=== PATIENT | male | born 2000 | race Caucasian/White ===

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

== ENCOUNTER → 2021-08-27 | Outpatient (CLI) | payer OTHER ==
[~2021-08-27] MED LIST changes: +HYDR1TAB94 PO; +Vibramycin100 MG PO
[2021-08-29 19:08] LABS: CHLAMYDIA TRACHOMATIS, NAA Negative (Negative)
== END | disposition home or self-care (01) ==
LOC: LAB SHORT 19:11
PROVIDERS: Physician Assistant
DX: Z11.59 Encounter for screening for other viral diseases (principal)
CPT/HCPCS: 87491; 87591

== ENCOUNTER 2021-12-30 06:55 | Emergency (ER) | payer OTHER ==
[~2021-12-30] VITALS: Ht 185.4 cm; Wt 99.8 kg
[2021-12-30 07:35] LABS: BASOPHILS ABSOLUTE AUTO 0.05 K/mm3 (0.00-0.23); BASOPHILS PERCENT AUTO 1 % (0-2); EOSINOPHILS PERCENT AUTO 3 % (0-6); Hematocrit 44.1 % (37.0-53.0); Hemoglobin 14.8 g/dL (13.5-17.5); IMMATURE GRAN ABSOLUTE AUTO 0.01 K/mm3 (0.00-0.10); IMMATURE GRAN PERCENT AUTO 0 % (0-1); LYMPHOCYTES PERCENT AUTO 34 % (21-46); MONOCYTES ABSOLUTE AUTO 0.68 K/mm3 (0.16-1.47); MONOCYTES PERCENT AUTO 9 % (4-13); Mean Corpuscular HGB 29.3 pg (26.0-34.0); Mean Corpuscular HGB Conc 33.6 g/dL (31.5-36.5); Mean Corpuscular Volume 87 fL (80-100); Mean Platelet Volume 10.4 fL (9.1-12.4); NEUTROPHILS ABSOLUTE AUTO 4.11 K/mm3 (1.96-9.15); NEUTROPHILS PERCENT AUTO 54 % (41-73); Platelet Count 253 K/mm3 (150-400); RDW Coefficient Variation 12.5 % (11.7-14.2); RDW Standard Deviation 39.8 fL (35.1-46.3); Red Blood Cell Count 5.05 M/mm3 (4.30-5.90); White Blood Cell Count 7.65 K/mm3 (4.00-11.30)
[2021-12-30 07:48] LABS: Source, Urine Clean Catch
[2021-12-30 07:53] LABS: Appearance, Urine Clear (Clear); Bilirubin, Urine Neg (Neg); Blood, Urine 5+ (Neg); Color, Urine Yellow (P-Yellow); Glucose Qualitative, Urine Neg (Neg); Ketones, Urine Neg (Neg); Leukocyte Esterase, Urine Neg (Neg); Nitrite, Urine Neg (Neg); Protein, Urine Neg (Neg); Specific Gravity, Urine 1.025 (1.003-1.022); Urobilinogen, Urine NORM (Normal)
[2021-12-30 08:02] LABS: Alanine Aminotransfer (ALT/SGP 87 U/L (12-78); Albumin/Globulin Ratio 1.1 (0.8-1.8); Alk Phos 98 U/L (50-136); Anion Gap 9 mmol/L (6-16); Aspartate Aminotrans (AST/SGOT 41 U/L (12-37); Bilirubin, Total 0.5 mg/dL (0.1-1.0); Blood Urea Nitrogen 15 mg/dL (8-24); Bun/Creatinine Ratio 14.3 (12.0-20.0); CO2, Blood 23 mmol/L (21-32); Calcium, Blood 9.7 mg/dL (8.5-10.1); Chloride, Blood 109 mmol/L (98-108); Creatinine, Blood 1.05 mg/dL (0.60-1.20); Globulin, Blood 3.7 g/dL (2.2-4.0); Glomerular Filtration Rate >60 (60-); Glucose, Blood 128 mg/dL (70-99); Potassium, Blood 3.8 mmol/L (3.5-5.5); Sodium, Blood 141 mmol/L (136-145); Total Protein, Blood 7.7 g/dL (6.4-8.2)
[2021-12-30 08:13] LABS: Bacteria Few /hpf; Red Blood Cells, Urine 25-50 /hpf (0-2); Squamous Epithelial Cells Rare /hpf (Few); White Blood Cells, Urine 0-2 /hpf (0-5)
[2021-12-30] MEDS ORDERED: Flomax0.4 MG PO (09:18)
[2021-12-30] MEDS ORDERED: HYDR1TAB94 PO (09:18)
== END 2021-12-30 10:37 | disposition home or self-care (01) ==
LOC: ER 06:55
PROVIDERS: Emergency Medicine
DX: N13.2 Hydronephrosis with renal and ureteral calculous obstruction (principal); K76.0 Fatty (change of) liver, not elsewhere classified
CPT/HCPCS: 36415; 74176; 80053; 81001; 83690; 85025; A9270; J1885; J2405; J7030

== ENCOUNTER 2022-07-26 04:54 | Emergency (ER) | payer OTHER ==
[~2022-07-26] VITALS: Ht 182.9 cm; Wt 127.0 kg
[~2022-07-26 04:54] MED LIST changes: +Flomax0.4 MG PO
== END 2022-07-26 08:23 | disposition home or self-care (01) ==
LOC: ER 04:54
DX: S91.332A Puncture wound without foreign body, left foot, initial encounter (principal); Z23 Encounter for immunization; Z88.2 Allergy status to sulfonamides; W22.8XXA Striking against or struck by other objects, initial encounter
CPT/HCPCS: 73630; 90714

== ENCOUNTER → 2025-05-19 | Outpatient (CLI) | payer OTHER ==
[~2025-05-19] MED LIST changes: +DULOXETINE HCL60 M1 PO; +METHYLPHENIDATE PO
[2025-05-19 15:42] LABS: BASOPHILS ABSOLUTE AUTO 0.03 K/mm3 (0.00-0.23); BASOPHILS PERCENT AUTO 1 % (0-2); EOSINOPHILS ABSOLUTE AUTO 0.16 K/mm3 (0.00-0.68); EOSINOPHILS PERCENT AUTO 3 % (0-6); Hematocrit 47.9 % (37.0-53.0); Hemoglobin 15.7 g/dL (13.5-17.5); IMMATURE GRAN ABSOLUTE AUTO 0.01 K/mm3 (0.00-0.10); IMMATURE GRAN PERCENT AUTO 0 % (0-1); LYMPHOCYTES ABSOLUTE AUTO 1.44 K/mm3 (0.84-5.20); LYMPHOCYTES PERCENT AUTO 27 % (21-46); MONOCYTES ABSOLUTE AUTO 0.47 K/mm3 (0.16-1.47); MONOCYTES PERCENT AUTO 9 % (4-13); Mean Corpuscular HGB Conc 32.8 g/dL (31.5-36.5); Mean Corpuscular Volume 90 fL (80-100); NEUTROPHILS ABSOLUTE AUTO 3.20 K/mm3 (1.96-9.15); NEUTROPHILS PERCENT AUTO 60 % (41-73); NRBC ABSOLUTE 0.00 K/mm3 (0.00-0.02); NRBC Auto 0.0 /100 WBC (0.0-0.2); Platelet Count 258 K/mm3 (150-400); RDW Coefficient Variation 12.4 % (11.7-14.2); RDW Standard Deviation 40.4 fL (35.1-46.3)
[2025-05-19 16:06] LABS: Alanine Aminotransfer (ALT/SGP 49.0 U/L (12-78); Albumin, Blood 3.9 g/dL (3.4-5.0); Albumin/Globulin Ratio 1.0 (0.8-1.8); Anion Gap 6.0 mmol/L (3-11); Aspartate Aminotrans (AST/SGOT 20.0 U/L (12-37); Bilirubin, Total 0.4 mg/dL (0.1-1.0); Blood Urea Nitrogen 14.0 mg/dL (8-24); CO2, Blood 26.0 mmol/L (21-32); Calcium, Blood 9.0 mg/dL (8.5-10.1); Chloride, Blood 109.0 mmol/L (98-108); Creatinine, Blood 0.71 mg/dL (0.60-1.20); Globulin, Blood 3.8 g/dL (2.2-4.0); Glucose, Blood 111.0 mg/dL (70-99); Potassium, Blood 4.5 mmol/L (3.5-5.5); Sodium, Blood 136.0 mmol/L (136-145); Thyroid Stimulating Hormone 1.6 uIU/mL (0.360-4.800); Total Protein, Blood 7.7 g/dL (6.4-8.2)
[2025-05-21 16:26] LABS: HIV 1,2 COMBO ANTIGEN/ANTIBODY Negative (Negative)
[2025-05-22 06:20] LABS: APTIMA MEDIA TYPE Urine; C. TRACHOMATIS BY TMA Negative (Negative); N. GONORRHOEAE BY TMA Negative (Negative); T. VAGINALIS BY TMA Negative (Negative)
== END | disposition home or self-care (01) ==
LOC: LAB SHORT 07:41 → LAB 07:41
PROVIDERS: Nurse Practitioner Family
DX: Z11.3 Encounter for screening for infections with a predominantly sexual mode of transmission (principal); R35.0 Frequency of micturition
CPT/HCPCS: 80053; 84443; 85025; 86592; 87389; 87491; 87591; 87661